=== PATIENT | male | born 1985 | race African-American/Black ===

== ENCOUNTER 2022-09-25 23:21 | Inpatient (IN) | payer SELFPAY ==
[~2022-09-25] VITALS: Ht 180.3 cm; Wt 68.2 kg
[2022-09-25 23:56] LABS: Mean Corpuscular Volume 91.6 fL (80.0-100.0); Red Cell Distribution Width 14.7 % (11.8-14.3)
[2022-09-25 23:58] LABS: Hemoglobin 11.9 g/dL (13.5-17.5); Mean Corpuscular Hemoglobin 31.1 pg (28.0-32.0); Red Blood Cells 3.82 10^6/uL (4.5-5.90); White Blood Cell 20.5 10^3/uL (4.4-10.8)
[2022-09-25 23:59] LABS: Band Neutrophils % (manual) 0; Basophils % (manual) 0 (0.0-2.0); Blast Cells 0; Eosinophils % (manual) 0 (0-7); Promyelocytes % 0; Reactive Lymphocytes 0
[2022-09-26 00:13] LABS: BUN/Creatinine Ratio 16.1 (10.0-20.0); Calcium 8.3 mg/dL (8.5-10.1); Potassium 3.7 mmol/L (3.5-5.1)
[2022-09-26 00:16] LABS: Bilirubin, Total 0.4 mg/dL (0.2-1.0); Total Protein 6.6 g/dL (6.4-8.2)
[2022-09-26 01:29] LABS: Lymphocytes % (manual) 12 (10.0-50.0); Metamyelocytes % 1; Monocytes % (manual) 4 (0-12); Myelocytes % 1
[2022-09-26] MEDS ORDERED: LACTATED RINGER'S 2,100 ML IV ONE (02:45)
[2022-09-26] MEDS ORDERED: PIPERACILLIN-TAZOB 3.375GM 100 ML IV ONE (02:45)
[2022-09-26] MEDS ORDERED: VANCOMYCIN 1GM/250ML 250 ML IV ONE (02:45)
[2022-09-26 03:28] LABS: Urine Bacteria NONE SEEN /hpf (None Seen); Urine Blood Negative /uL (Negative); Urine Mucus FEW (None Seen); Urine Specific Gravity 1.021 (1.001-1.035); Urine WBC 7 /hpf (0 - 3)
[2022-09-26 04:10] VITALS: PULSE 86; RESP 16; O2SAT 99
[2022-09-26] MEDS ORDERED: ONDANSETRON HCL 4 MG/2 ML VIAL IV PRN (07:45)
[2022-09-26] MEDS ORDERED: HYDROcodone-ACET 5/325MG TAB PO PRN (07:45)
[2022-09-26] MEDS ORDERED: ACETAMINOPHEN 325 MG TAB PO PRN (07:45)
[2022-09-26] MEDS ORDERED: MORPHINE SULFATE INJ 2 MG/ml SYRG IV PRN (07:45)
[2022-09-26] MEDS ORDERED: VANCOMYCIN PER PHARMACY 0 MG IV SCH (07:45)
[2022-09-26] MEDS ORDERED: NITROGLYCERIN 0.4 MG SL TAB SL PRN (07:45)
[2022-09-26] MEDS: SODIUM CHLORIDE 0.9% 1,000 ML IV SCH (07:45)
[2022-09-26] MEDS ORDERED: DOCUSATE SOD 100 MG CAP PO PRN (07:45)
[2022-09-26 08:16] LABS: Basophils # (auto) 0.1 10 ^3/uL (0-0.2); Eosinophils # (auto) 0.1 10 ^3/uL (0-0.8); Eosinophils % (auto) 0.3 % (0.0-7.0); Hemoglobin 12.7 g/dL (13.5-17.5); Lymphocytes # (auto) 2.3 10 ^3/uL (0.4-5.4); Nucleated Red Blood Cells % 0.1 %
[2022-09-26 08:17] LABS: Basophils % (auto) 0.6 % (0.0-2.0); Hematocrit 37.6 % (41.0-53.0); Lymphocytes % (auto) 11.1 % (10.0-50.0); Mean Corpuscular Hgb Conc. 33.8 g/dL (32.0-36.0); Mean Corpuscular Volume 91.6 fL (80.0-100.0); Monocytes # (auto) 1.4 10 ^3/uL (0-1.3); Monocytes % (auto) 6.8 % (0.0-12.0); Neutrophils # (auto) 16.8 10 ^3/uL (1.6-8.6); Neutrophils % (auto) 81.2 % (37.0-80.0); Red Cell Distribution Width 14.5 % (11.8-14.3); White Blood Cell 20.7 10^3/uL (4.4-10.8)
[2022-09-26 08:31] LABS: Albumin 1.7 g/dL (3.4-5.0); Calcium 8.3 mg/dL (8.5-10.1); Potassium 3.7 mmol/L (3.5-5.1)
[2022-09-26 08:35] LABS: BUN/Creatinine Ratio 16.7 (10.0-20.0); Bilirubin, Total 0.5 mg/dL (0.2-1.0); Total Protein 6.3 g/dL (6.4-8.2)
[2022-09-26] MEDS: HEPARIN SODIUM (PORCINE) 5000 UNITS/ML 1ML VIAL SC SCH ×2 (10:10→22:12)
[2022-09-26] MEDS: PIPERACILLIN-TAZOB 3.375GM 100 ML IV SCH ×2 (14:00→22:04)
[2022-09-26 18:27] VITALS: BP 138/88; PULSE 90; RESP 18; TEMP 98.2; O2SAT 97
[2022-09-26 18:33] LABS: Alcohol, Urine < 3.0 mg/dL (0-10); Amphetamine Screen, Urine POSITIVE (NEGATIVE); Barbiturate Scree,Urine NEGATIVE (NEGATIVE); Cannabinoid Screen, Urine POSITIVE (NEGATIVE); Cocaine Screen, Urine NEGATIVE (NEGATIVE); Opiate Scree,Urine NEGATIVE (NEGATIVE)
[2022-09-26 18:41] LABS: Benzodiazephine Screen, Urine NEGATIVE (NEGATIVE); Phencyclidine Screen, Urine NEGATIVE (NEGATIVE)
[2022-09-26] MEDS: VANCOMYCIN 1GM/250ML 250 ML IV SCH (19:54)
[2022-09-26 20:00] VITALS: PULSE 94; RESP 20; O2SAT 98
[2022-09-26 22:00] VITALS: BP 116/73; PULSE 94; RESP 20; TEMP 98.7; O2SAT 98
[2022-09-27] VITALS (7 sets, daily range): BP systolic 116–125; BP diastolic 73–76; PULSE 88–102; RESP 16–20; TEMP 97.6–98.6; O2SAT 97–100
[2022-09-27] MEDS: SODIUM CHLORIDE 0.9% 1,000 ML IV SCH (00:25)
[2022-09-27] MEDS: VANCOMYCIN 1GM/250ML 250 ML IV SCH ×2 (05:26→18:08)
[2022-09-27 05:41] LABS: Potassium 4.2 mmol/L (3.5-5.1)
[2022-09-27 05:49] LABS: Albumin 1.8 g/dL (3.4-5.0); BUN/Creatinine Ratio 18.3 (10.0-20.0); Bilirubin, Total 0.2 mg/dL (0.2-1.0); Calcium 8.1 mg/dL (8.5-10.1); Total Protein 6.6 g/dL (6.4-8.2)
[2022-09-27 05:52] LABS: Hemoglobin 12.9 g/dL (13.5-17.5)
[2022-09-27 05:54] LABS: Mean Corpuscular Volume 91.2 fL (80.0-100.0); Red Blood Cells 4.16 10^6/uL (4.5-5.90); Red Cell Distribution Width 14.2 % (11.8-14.3); White Blood Cell 16.3 10^3/uL (4.4-10.8)
[2022-09-27 06:12] LABS: Basophils % (manual) 0 (0.0-2.0); Blast Cells 0; Eosinophils % (manual) 0 (0-7); Metamyelocytes % 0; Myelocytes % 0; Promyelocytes % 0; Reactive Lymphocytes 0
[2022-09-27] MEDS: PIPERACILLIN-TAZOB 3.375GM 100 ML IV SCH ×3 (06:40→21:19)
[2022-09-27 08:13] LABS: Band Neutrophils % (manual) 6; Lymphocytes % (manual) 13 (10.0-50.0); Monocytes % (manual) 5 (0-12)
[2022-09-27] MEDS: HEPARIN SODIUM (PORCINE) 5000 UNITS/ML 1ML VIAL SC SCH ×2 (09:12→21:24)
[2022-09-28] MEDS: VANCOMYCIN 1GM/250ML 250 ML IV SCH ×3 (00:47→06:24)
[2022-09-28 05:00] VITALS: BP 117/84; PULSE 92; TEMP 97.5; O2SAT 100
[2022-09-28 08:00] VITALS: PULSE 100; PULSE 60; RESP 16; O2SAT 98
[2022-09-28 09:00] VITALS: BP 116/64; PULSE 100; RESP 16; TEMP 98.7; O2SAT 98
[2022-09-28] MEDS: SODIUM CHLORIDE 0.9% 1,000 ML IV SCH (10:09)
[2022-09-28] MEDS: PIPERACILLIN-TAZOB 3.375GM 100 ML IV SCH ×2 (10:09→14:00)
[2022-09-28] MEDS: HEPARIN SODIUM (PORCINE) 5000 UNITS/ML 1ML VIAL SC SCH (10:11)
[2022-09-28] MEDS ORDERED: LEVO500T91 PO (10:56)
[2022-09-28 11:41] VITALS: BP 117/84; PULSE 92; RESP 18; TEMP 37.1; O2SAT 100
[2022-09-28 13:00] VITALS: BP 120/70; PULSE 67; RESP 16; TEMP 98.4; O2SAT 99
== END 2022-09-28 19:50 | disposition home or self-care (01) | DRG 872 ==
LOC: ER 23:21 → TELE 09-26 07:43 → TELE-CENTR 09-26 18:04
PROVIDERS: ADMIT Family Medicine; ATTEND Family Medicine
DX: A41.9 Sepsis, unspecified organism (principal); N39.0 Urinary tract infection, site not specified; D75.839 Thrombocytosis, unspecified; E86.0 Dehydration; E88.09 Other disorders of plasma-protein metabolism, not elsewhere classified; F15.10 Other stimulant abuse, uncomplicated
CPT/HCPCS: 36415; 80053; 80202; 80307; 81001; 83605; 85007; 85025; 85027; 87040; 87086; G0378; J2543